=== PATIENT | male | born 1955 | race Caucasian/White ===

== ENCOUNTER → 2023-04-09 09:29 | Outpatient (REF) | payer SELFPAY | LOC: HWRAD 09:29 | PROVIDERS: ATTENDING PHYSICIAN Internal Medicine | DX: E78.2 Mixed hyperlipidemia (principal) | CPT/HCPCS: 75571 ==

== ENCOUNTER 2024-07-28 14:32 | Emergency (ER) | payer BC, SELFPAY ==
[2024-07-28 14:35] VITALS: BP 174/125
[2024-07-28 15:00] VITALS: BP 153/103
[2024-07-28 15:01] LABS: % Basophils 0.5 % (0-2); % Eosinophils 0.5 % (0-6); % Immature Granulocytes 0.4 % (0-0.5); % Lymphocytes 30.9 % (20.5-51.1); % Monocytes 9.2 % (1.7-9.3); % Neutrophils 58.5 % (42.2-75.2); Absolute Basophils 0.1 10^3/uL (0-0.2); Absolute Eosinophils 0.1 10^3/uL (0-0.7); Absolute Lymphocytes 3.1 10^3/uL (1.2-3.4); Absolute Monocytes 0.9 10^3/uL (0.1-0.6); Absolute Neutrophils 5.8 10^3/uL (1.4-6.5); Hematocrit 51.6 % (39.0-52.0); Hemoglobin 17.6 g/dL (13.0-18.0); Mean Corp Hgb Conc. 34.1 g/dL (33.0-37.0); Mean Corpuscular Volume 87.9 fL (80.0-94.0); Mean Platelet Volume 10.7 fL (7.4-10.4); Nucleated Red Blood Cells % 0 % (-); Platelet Count 228 10^3/uL (130-400); Red Blood Cell Count 5.87 10^6/uL (4.70-6.10); Red Cell Dist. Width 13.3 % (11.5-14.5); White Blood Cell Count 9.9 10^3/uL (4.8-10.8)
[2024-07-28 15:02] VITALS: BMI 30.3
[2024-07-28 15:18] LABS: Troponin I < 0.012 ng/ml
[2024-07-28 15:29] LABS: ALT (SGPT) 31 U/L (0-50); AST (SGOT) 30 U/L (17-59); Albumin 4.8 g/dl (3.5-5.0); Alkaline Phosphatase 49 U/L (38-126); Blood Urea Nitrogen 20 mg/dl (9-20); Calcium 10.2 mg/dl (8.4-10.2); Carbon Dioxide 26 mmol/L (22-30); Chloride 107 mmol/L (98-107); Estimated Creatinine Clearance 82 ml/min; Glucose 99 mg/dl (70-99); Magnesium 2.2 mg/dl (1.6-2.3); Potassium 5.1 mmol/L (3.5-5.1); Sodium 140 mmol/L (135-145); Total Bilirubin 2.3 mg/dl (0.2-1.3); Total Protein 7.6 g/dl (6.3-8.2); eGFR > 60.00
[2024-07-28 15:49] LABS: TSH Reflex To Free T4 2.75 uIU/ml (0.47-4.68)
[2024-07-28 16:00] VITALS: BP 130/102
--- NOTE | 2024-07-28 16:07 | ED.GENMED ---
History of Present Illness
<BOO Vann - Last Filed: 07/28/24 20:29>
General
Chief Complaint: Cardiac Symptoms
Source: patient and spouse
Time Seen by Provider: 07/28/24 15:21
History of Present Illness
History of Present Illness:
This is a 73 y/o M with a PMH of HLD on a statin, HTN on amlodipine and BPH who presents with heart fluttering x few days. He has had episodes of fluttering in the past with no formal diagnosis. The episodes usually last a few seconds or minutes and
spontaneously resolve. This time, the episode lasted longer and he felt 'funny' prompting him to come to the ED. He describes this as a 'blip' in his chest or like his 'heart doing a somersault'. He sometimes feels this in his throat. It occurs
randomly throughout the day and sometimes can go days without feeling anything. He denies fever, lightheadedness, dizziness, chest pain, shortness of breath, nausea, vomiting, diarrhea or syncope.
He denies a PMH of arrhythmias, SD or stroke. He had a coronary calcium score of 562.7 in 2023. Family history and surgical history noncontributory. He denies tobacco, alcohol or drug use.
Past History
<BOO Vann - Last Filed: 07/28/24 20:29>
Past History
ED Past Medical History: Other (Prostatitis and DJD)
ED Past Surgical History: Orthopedic
Social History
Tobacco: Non-smoker
Living: with family
Review of Systems
<BOO Vann - Last Filed: 07/28/24 20:29>
Review of Systems
Constitutional: Reports no symptoms
EENT: Reports no symptoms
Respiratory: Reports no symptoms
Cardiac: Reports palpitations
ABD/GI: Reports no symptoms
: Reports no symptoms
Phy Exam
<BOO Vann - Last Filed: 07/28/24 20:29>
General Physical Exam
General Presentation: well appearing and no apparent distress
General age: appears stated age
General Skin: warm and dry
General Habitus: normal
General Mental: alert
General Hydration: appears well hydrated
Cardiovascular Exam
Cardiovascular Exam: regular rate/rhythm, no edema, no JVD, no murmur, normal peripheral pulses and other (occasional extrasystoles)
Pulmonary Exam
Pulmonary Exam: lungs clear, no respiratory distress and chest non tender
Course
<BOO Vann - Last Filed: 07/28/24 20:29>
Orders/Labs/Results
Orders:
Orders
07/28/24 14:33
Electrocardiogram (*1) Urgent
Reason for Study: Chest Pain
EKG- Treatment ONCE
07/28/24 14:42
Comprehensive Metabolic Panel Urgent
Magnesium Urgent
TSH Reflex To Free T4 Urgent
07/28/24 14:43
Complete Blood Count/With Diff Urgent
Troponin I Urgent
Abnormal Lab Results
07/28/24 07/28/24
14:42 14:43
MPV 10.7 H fL
(7.4-10.4)
Absolute Monos (auto) 0.9 H 10^3/uL
(0.1-0.6)
Total Bilirubin 2.3 H mg/dl
(0.2-1.3)
07/28/24 14:43
07/28/24 14:42
Vital Signs
Initial and Last Documented VS:
Initial Vital Signs
Temp Pulse Resp BP Pulse Ox
98.0 F 115 20 174/125 99
07/28/24 14:35 07/28/24 14:35 07/28/24 14:35 07/28/24 14:35 07/28/24 14:35
Last Documented Vital Signs
Temp Pulse Resp BP Pulse Ox
98.0 F 90 17 132/92 94
07/28/24 14:35 07/28/24 17:30 07/28/24 17:30 07/28/24 17:00 07/28/24 17:15
<Fernando Cramer MD - Last Filed: 07/28/24 17:23>
Orders/Labs/Results
Orders:
Orders
07/28/24 14:33
Electrocardiogram (*1) Urgent
Reason for Study: Chest Pain
EKG- Treatment ONCE
07/28/24 14:42
Comprehensive Metabolic Panel Urgent
Magnesium Urgent
TSH Reflex To Free T4 Urgent
07/28/24 14:43
Complete Blood Count/With Diff Urgent
Troponin I Urgent
Abnormal Lab Results
07/28/24 07/28/24
14:42 14:43
MPV 10.7 H fL
(7.4-10.4)
Absolute Monos (auto) 0.9 H 10^3/uL
(0.1-0.6)
Total Bilirubin 2.3 H mg/dl
(0.2-1.3)
07/28/24 14:43
07/28/24 14:42
Vital Signs
Initial and Last Documented VS:
Initial Vital Signs
Temp Pulse Resp BP Pulse Ox
98.0 F 115 20 174/125 99
07/28/24 14:35 07/28/24 14:35 07/28/24 14:35 07/28/24 14:35 07/28/24 14:35
Last Documented Vital Signs
Temp Pulse Resp BP Pulse Ox
98.0 F 90 17 132/92 94
07/28/24 14:35 07/28/24 17:30 07/28/24 17:30 07/28/24 17:00 07/28/24 17:15
<BOO Vann - Last Filed: 07/28/24 20:29>
MDM/Problems Addressed
Differential Diagnosis Includes:
Arrhythmias vs SD
MDM/Problems Addressed:
This is a 73 y/o M with a PMH of HLD on a statin, HTN on amlodipine and BPH who presents with heart fluttering x few days. Not in distress. Hypertensive in triage, trending downwards now. Blood work WNL. Troponin negative. ECG revealing normal sinus
with occasional PVC. Premature beats on monitor coincide with patient symptoms. Most likely his premature beats are inducing symptoms. Stable for discharge and recommend outpatient holter monitor.
<BOO Vann - Last Filed: 07/28/24 20:29>
*Critical Care Note
Total Time (30-74mins, 75-104mins- exclusive of procedures): Not Applicable
ED Attending Note
<BOO Vann - Last Filed: 07/28/24 20:29>
-
Portions of this chart may have been created with voice recognition software.� Occasional wrong word or��sound alike� substitutions may have occurred due to the inherent limitations of voice recognition software.
<Fernando Cramer MD - Last Filed: 07/28/24 17:23>
ED Attending Note
Patient seen and examined by attending physician: Yes
I performed the substantive portion of visit, reviewed & personally made and approve the management plan that is documented in note by myself or JUAN PABLO.: Yes
ED Attending Note:
69-year-old male complaining of episodes of fluttering heart rate. Has been going on for days. Intermittent in the past. Feels like a skipped beat flutter feel. No heart racing no chest pain no shortness of breath no syncope.
On exam patient is nontoxic in no distress. Lungs are clear and equal. Heart regular rhythm and rate with no murmur. Very occasional irregular beat that coincides with PVCs on the monitor and is what he is feeling. No V. tach. No bigeminy.
Abdomen is soft and nontender. Warm and dry. Perfusing well.
Impression is occasional PVCs/PACs clearly that is what the patient is feeling. Has been observed. Medically stable. Blood pressure stable. Discharged to follow-up
Discharge Plan
Departure
Patient Disposition: Home (Routine Discharge)
Date of Disposition: 07/28/24
Time of Disposition: 17:21
Patient with high blood pressure during this ER visit?: Yes
Discharge Problem:
Palpitations/PVCs
Instructions: Ventricular premature beats, Palpitations - ED discharge instructions, BLOOD PRESSURE
Prescriptions:
No Action
acetaminophen [Tylenol Extra Strength] 500 MG tablet
1,000 mg PO PRN PRN (Reason: fever/pain)
tamsulosin 0.4 MG capsule
0.4 mg PO DAILY
multivitamin with folic acid [Tab-A-Joesph] 1 TABLET tablet
1 tab PO DAILY
amlodipine 5 MG tablet
5 mg PO DAILY
lansoprazole [Prevacid] 30 MG capsule,delayed release(DR/EC)
30 mg PO HS Qty: 30 0RF
hydrocodone-acetaminophen [Vicodin] 1 EACH tablet
1 ea PO Q6H PRN (Reason: pain) Qty: 10 0RF
Referrals:
Keith Swain DO [Family Provider, Internal Medicine] - Follow up in 2-3 days
Activity Restrictions/Additional Instructions:
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
Interventions
Interventions:
*Risk Screen - Suicide Last Done: 07/28/24 15:02
*General Assessment Last Done: 07/28/24 14:35
*Neglect/Abuse Screening Last Done: 07/28/24 15:02
*ED- Fall Risk Assessment Last Done: 07/28/24 15:02
*ED COVID-19 Vaccine History Last Done: 07/28/24 15:02
*Nursing Disposition Last Done: 07/28/24 17:56
ED- Cardiac Assessment Last Done: 07/28/24 15:02
ED- Pulmonary Assessment Last Done: 07/28/24 15:02
Discharge Date and Time
Discharge Date/Time: 07/28/24 18:00
Print Language: TURKISH
[2024-07-28 17:00] VITALS: BP 132/92
== END 2024-07-28 18:00 | disposition home or self-care (01) ==
LOC: EMR 14:32
PROVIDERS: Emergency Medicine; EMERGENCY PHYSICIAN Emergency Medicine; FAMILY PHYSICIAN Internal Medicine
DX: I49.3 Ventricular premature depolarization (principal); R00.2 Palpitations; E78.5 Hyperlipidemia, unspecified; I10 Essential (primary) hypertension; Z79.899 Other long term (current) drug therapy
CPT/HCPCS: 99284; 80053; 83735; 84443; 84484; 85025; 93005